=== PATIENT | male | born 1955 | race Caucasian/White ===

== ENCOUNTER 2019-05-24 11:34 | Emergency (ER) | payer MEDICARE ==
[2019-05-24] MEDS ORDERED: DUONEB 0.5-3 MG/3 ml Neb IH ONE ×2 (11:40→11:46)
[2019-05-24] MEDS ORDERED: solu-MEDROL 125 MG IV ONE (11:40)
[2019-05-24 11:53] LABS: Lactic Acid 1.4 (0.4-2.0); VBG BASE EXCESS 3.4 (-2.0-2.0); VBG CARBOXYHEMOGLOBIN 2.8 % T HGB (0.0-6.9); VBG HCO3- 25.9 meq/L (22-28); VBG HEMOGLOBIN 9.5; VBG POTASSIUM 4.8 (3.5-5.1); VBG pH 7.53 (7.32-7.42)
--- NOTE | 2019-05-24 12:08 | XRAY ---
Indication: Chest pain short of breath. Comparison: January 02, 2009. Portable chest demonstrates new right mid to lower lung consolidation with mild lung volume loss, probable combination atelectasis/effusion. Remaining heart and left lung unremarkable. Bony thorax intact.
[2019-05-24] MEDS ORDERED: ROCEPHIN 2 Gm-D5w 50ML BAG** 2 G/50 ML IVPB IV STA (12:21)
[2019-05-24 12:25] LABS: Hematocrit 28.6 % (42-50); Hemoglobin 8.8 gm/dl (12.5-18.0); Mean Corpuscular Hemoglobin 22.4 pg (26-32); Mean Corpuscular Hgb Concent. 30.8 g/dl (32-36); Mean Platelet Volume 9.2 fl (6-9.5); Platelet Count 539 K/mm3 (150-450); Red Blood Count 3.92 M/mm3 (4.1-5.6); Red Cell Distribution Width 17.7 % (11.5-14.0)
--- NOTE | 2019-05-24 12:26 | ERPHSYRPT ---
- History of Present Illness Time Seen by Provider: 05/24/19 11:45 Source: patient Exam Limitations: no limitations Patient Subjective Stated Complaint: pt co sob for 2 months now after he ran out of meds because he does not have a doctor, Triage Nursing Assessment: alert,walked in, resp labored with movement, skin clammy, pink. has chronic dry cough, bs diminished, Physician History: Patient has had over 6 months of shortness of breath since he stopped seeing his medical provider. It has worsened over the past one month. Timing/Duration: week(s) (4), constant, gradual onset, worse (over the past month) Activities at Onset: none Severity of Dyspnea-Max: severe Severity of Dyspnea-Current: severe Possible Cause: frequent episodes, chronic episodes Modifying Factors: Worsens With: activity, coughing, deep breath, exertion Associated Symptoms: constant, wheezing, sweating, tightness, No anxiety, No chest pain/discomfort, No edema, No fever, No insomnia, No loss of appetite, No lightheadedness, No weakness, No ankle swelling, No hemoptysis, No calf pain, No dizziness, No heaviness, No heart racing, No lightheadedness, No leg swelling , No muscle spasms feet, No muscle spasms hands, No painful breathing, No productive cough, No tingling face, No tingling hands Allergies/Adverse Reactions: codeine Allergy (Verified 05/24/19 11:44) ibuprofen Allergy (Verified 05/24/19 11:44) Home Medications: Albuterol Sulfate [Proair Hfa] 4 puff IH BID 08/19/14 [History] Atorvastatin Calcium [Lipitor 40Mg] 40 mg PO HS 08/19/14 [History] Benztropine Mesylate 0.5 mg PO TID 08/19/14 [History] Carbamazepine 200 mg [Tegretol 200 MG] 400 mg PO TID 08/19/14 [History] Clonazepam 2 mg PO DAILY PRN PRN 08/19/14 [History] Fluticasone/Salmeterol [Advair 500-50 Diskus] 1 puff IH BID 08/19/14 [History] Insulin Glargine,Hum.rec.anlog [Lantus] 20 unit SQ DAILY 08/19/14 [History] Lisinopril 20 mg PO DAILY 08/19/14 [History] Metformin HCl 850 mg [Glucophage 850 MG] 1,700 mg PO DAILY 08/19/14 [ History] Metformin HCl 850 mg [Glucophage 850 MG] 850 mg PO HS 08/19/14 [History] Mirtazapine 45 mg PO HS 08/19/14 [History] [place]-3 Ethyl Esters 4 gm PO DAILY 08/19/14 [History] Quetiapine Fumarate 100 mg PO DAILY 08/19/14 [History] Quetiapine Fumarate [Seroquel] 200 mg PO BID 08/19/14 [History] Sertraline HCl 100 mg [Zoloft 100 MG] 150 mg PO DAILY 08/19/14 [History] hydrOXYzine HCl [Hydroxyzine HCl] 50 mg PO TID 08/19/14 [History] Hx Tetanus, Diphtheria Vaccination/Date Given: No Hx Influenza Vaccination/Date Given: No Hx Pneumococcal Vaccination/Date Given: No Immunizations Up to Date: Yes - Review of Systems Constitutional: Fatigue, No Fever, No Chills Eyes: No Discharge, No Eye Pain Ears, Nose, & Throat: No Nose Congestion, No Mouth Swelling, No Throat Pain, No Painful Swallowing Respiratory: Dyspnea, Dyspnea on Exertion (MCINTOSH), Wheezing, No Cough Cardiac: No Chest Pain, No Edema, No Syncope Abdominal/Gastrointestinal: No Abdominal Pain, No Nausea, No Vomiting, No Diarrhea Genitourinary Symptoms: No Dysuria, No Hematuria, No Flank Pain Musculoskeletal: No Back Pain, No Neck Pain Skin: No Rash Neurological: No Dizziness, No Focal Weakness, No Headache, No Parasthesia, No Sensory Changes Psychological: No Emotional Lability Endocrine: Excessive Sweating All Other Systems: Reviewed and Negative - Past Medical History Pertinent Past Medical History: Yes Cardiac History: High Cholesterol, Hypertension Respiratory History: COPD Endocrine Medical History: Diabetes Type II Musculoskeletal History: Fractures Other Medical History: broken back, broken neck, left arm surgery - Past Surgical History Past Surgical History: Yes Gastrointestinal: Appendectomy Musculoskeletal: Orthopedic Surgery - Social History Smoking Status: Former smoker Exposure to second hand smoke: No Drug Use: none Patient Lives Alone: Yes - Nursing Vital Signs Nursing Vital Signs: Initial Vital Signs Pulse Rate 116 H 05/24/19 11:35 Respiratory Rate 26 H 05/24/19 11:35 O2 Sat by Pulse Oximetry 96 01/02/20 11:35 Pain Scale Pain Intensity 0 - Physical Exam General Appearance: mild distress, alert Eye Exam: PERRL/EOMI Ears, Nose, Throat Exam: hearing grossly normal, normal ENT inspection, normal pharynx, pharyngeal erythema, No sinus pain/drainage, No nasal congestion, No tonsillar exudate Neck Exam: normal inspection, non-tender, supple, full range of motion, No Brudzinski, No meningismus, No lymphadenopathy (R), No lymphadenopathy (L), No subcutaneous emphysema, No tenderness midline Respiratory Exam: respiratory distress, airway intact, diminished breath sounds , prolonged expirations, wheezing, No crackles/rales, No stridor, No pleural rub Cardiovascular/Chest Exam: normal heart sounds, regular rate/rhythm, normal peripheral pulses, No murmur Abdominal/Gastrointestinal Exam: soft, No tenderness, No distention, No mass Extremity Exam: non-tender, normal range of motion, normal inspection, no calf tenderness, no pedal edema Neurologic Exam: alert, oriented x 3, cooperative, narcotics agent II-XII nml as tested, normal mood/affect, sensation nml, No motor deficits Skin Exam: normal color, warm, No dry, No petechiae, No jaundice, No cyanosis SpO2 Interpretation: normal SpO2: 99 O2 Delivery: Room Air - Course Nursing assessment & vital signs reviewed: Yes EKG Interpreted by Me: RATE (108), Sinus Tach, NORMAL AXIS, NORMAL INTERVALS, NORMAL ST-T, Other (no change in comparison to EKG from 08/04/2013) - Radiology Exams Chest X-ray Interpretation: Other (per radiologist interpretation: A new right mid to lower lung consolidation with mild lung volume loss, probable combination atelectasis/effusion. Remaining heart and left lung unremarkable. Bony thorax intact.) - CT Exams Chest CT Interpretation: Other (pper the radiologist's interpretation: Negative pulmonary embolus. Large right subpulmonic effusion with right lower lip compressive atelectasis. Prominent precarinal lymph node. Indeterminate calcified left adrenal gland mass and a left renal cyst.) Ordered Tests: Active Orders 24 hr Category Date Time Status Etl Software Engineer STAT Care 05/24/19 11:41 Active EKG-ER Only STAT Care 05/24/19 11:40 Active IV Insertion STAT Care 05/24/19 11:40 Active Oxygen-ED Only Nasal Cannula 2 lpm Care 05/24/19 11:40 Active Regular Diet Diet 05/24/19 Dinner Active CHEST 1 VIEW (PORTABLE) Stat Exams 05/24/19 11:41 Completed CHEST WITH CONTRAST [CT] Stat Exams 05/24/19 13:47 Completed BLOOD CULTURE Stat Lab 05/24/19 12:10 Received CBC W DIFF Stat Lab 05/24/19 12:00 Completed CMP Stat Lab 05/24/19 12:00 Completed CULTURE,URINE Stat Lab 05/24/19 15:05 Ordered D-DIMER QUANTITATIVE Stat Lab 05/24/19 12:00 Completed Lactic Acid Stat Lab 05/24/19 11:49 Completed MAGNESIUM Stat Lab 05/24/19 12:00 Completed Manual Differential NC Stat Lab 05/24/19 12:00 Completed NT PRO BNP Stat Lab 05/24/19 12:00 Completed PROTIME WITH INR Stat Lab 05/24/19 12:00 Completed PTT Stat Lab 05/24/19 12:00 Completed TROPONIN Q3H Lab 05/24/19 12:00 Completed TROPONIN Q3H Lab 05/24/19 14:55 Completed TROPONIN Q3H Lab 05/24/19 17:45 Ordered TROPONIN Q3H Lab 05/24/19 20:45 Ordered TROPONIN Q3H Lab 05/24/19 23:45 Ordered UA W/RFX UR CULTURE Stat Lab 05/24/19 15:05 Ordered VENOUS BLOOD GAS Stat Lab 05/24/19 11:49 Completed BiPap/CPAP STAT RT 05/24/19 11:40 Active Peak Expiratory Flow Rate ONCE RT 05/24/19 11:55 Active Respiratory Therapy Assessment DAILY RT 05/24/19 11:55 Active Medication Summary Generic Name Dose Route Start Last Admin Trade Name Freq PRN Reason Stop Dose Admin Magnesium Sulfate/Dextrose 100 mls @ 100 mls/hr 05/24/19 14:00 05/24/19 13:54 Magnesium 1 Gm / 100 Ml D5w IV 05/24/19 15:59 100 mls/hr Q1H MARY ANN Administration Discontinued Medications Generic Name Dose Route Start Last Admin Trade Name Freq PRN Reason Stop Dose Admin Albuterol/Ipratropium 3 ml 05/24/19 11:40 05/24/19 11:48 Duoneb 0.5-3 Mg/3 Ml Neb IH 05/24/19 11:41 3 ml STAT ONE Administration Albuterol/Ipratropium Confirm 05/24/19 11:46 Duoneb 0.5-3 Mg/3 Ml Neb Administered 05/24/19 11:47 Dose 3 ml IH .STK-MED ONE Ceftriaxone Sodium/Dextrose 2 g in 50 mls @ 100 mls/hr 05/24/19 12:21 13:37 Rocephin 2 Gm-D5w 50ml Bag IV 05/24/19 12:50 Infused STAT STA Infusion Ceftriaxone Sodium/Dextrose Confirm 05/24/19 12:48 Rocephin 2 Gm-D5w 50ml Bag Administered 05/24/19 12:49 Dose 2 g in 50 mls @ ud IV .STK-MED ONE Methylprednisolone Sodium Succinate 125 mg 05/24/19 11:40 05/24/19 12:50 Solu-Medrol 125 Mg IV 05/24/19 11:41 125 mg STAT ONE Administration Methylprednisolone Sodium Succinate Confirm 05/24/19 12:48 Solu-Medrol 125 Mg Administered 05/24/19 12:49 Dose 125 mg .ROUTE .STK-MED ONE Lab/Rad Data: Laboratory Result Diagrams 05/24/19 12:00 05/24/19 12:00 Laboratory Results 05/24/19 05/24/19 05/24/19 Range/Units 14:55 12:00 12:00 WBC (4.0-10.5) K/mm3 RBC (4.1-5.6) M/mm3 Hgb (12.5-18.0) gm/dl Hct (42-50) % MCV (78-100) fl MCH (26-32) pg MCHC (32-36) g/dl RDW (11.5-14.0) % Plt Count (150-450) K/mm3 MPV (6-9.5) fl Absolute Granulocytes (1.4-6.9) Segmented Neutrophils (36.-66.) % Lymphocytes (Manual) (24-44) % Monocytes (Manual) (0.0-12.0) % Hypochromia Platelet Estimate (NORMAL) RBC Morphology Anisocytosis Microcytosis PT 18.1 H (8.83-12.87) SECONDS INR 1.59 (0.8-3.0) APTT 32.6 (24.1-36.1) SECONDS D-Dimer 1157 H* (215-500) ng/mL pO2/FiO2 Ratio % VBG pH (7.32-7.42) VBG pCO2 at Pat Temp (42-55) mm/Hg VBG pO2 at Pat Temp (25-40) mm/Hg VBG HCO3 (22-28) meq/L VBG O2 Sat ([place]) (95-100) VBG Base Excess (-2.0-2.0) VBG Hemoglobin VBG Carboxyhemoglobin (0.0-6.9) % T HGB POC Potassium (3.5-5.1) Sodium (137-145) mmol/L Potassium (3.5-5.1) mmol/L Chloride (98-107) mmol/L Carbon Dioxide (22-30) mmol/L Anion Gap (5-15) MEQ/L BUN (9-20) mg/dL Creatinine (0.66-1.25) mg/dL Estimated GFR ML/MIN Glucose (74-106) mg/dL Lactic Acid (0.4-2.0) Calcium (8.4-10.2) mg/dL Magnesium (1.6-2.3) mg/dL Total Bilirubin (0.2-1.3) mg/dL AST (17-59) U/L ALT (0-50) U/L Alkaline Phosphatase (38-126) U/L Troponin I < 0.012 < 0.012 (0.000-0.034) ng/mL NT-Pro-B Natriuret Pep (0-900) pg/mL Serum Total Protein (6.3-8.2) g/dL Albumin (3.5-5.0) g/dL 05/24/19 05/24/19 05/24/19 Range/Units 12:00 12:00 11:49 WBC 11.0 H (4.0-10.5) K/mm3 RBC 3.92 L (4.1-5.6) M/mm3 Hgb 8.8 L (12.5-18.0) gm/dl Hct 28.6 L (42-50) % MCV 73.0 L (78-100) fl MCH 22.4 L (26-32) pg MCHC 30.8 L (32-36) g/dl RDW 17.7 H (11.5-14.0) % Plt Count 539 H (150-450) K/mm3 MPV 9.2 (6-9.5) fl Absolute Granulocytes 8.61 H (1.4-6.9) Segmented Neutrophils 78 H (36.-66.) % Lymphocytes (Manual) 19 L (24-44) % Monocytes (Manual) 3 (0.0-12.0) % Hypochromia 1+ Platelet Estimate INCREASED (NORMAL) RBC Morphology ABNORMAL Anisocytosis 1+ Microcytosis 1+ PT (8.83-12.87) SECONDS INR (0.8-3.0) APTT (24.1-36.1) SECONDS D-Dimer (215-500) ng/mL pO2/FiO2 Ratio 21 % VBG pH 7.53 H (7.32-7.42) VBG pCO2 at Pat Temp 31 L (42-55) mm/Hg VBG pO2 at Pat Temp 81 H (25-40) mm/Hg VBG HCO3 25.9 (22-28) meq/L VBG O2 Sat ([place]) 96 (95-100) VBG Base Excess 3.4 H (-2.0-2.0) VBG Hemoglobin 9.5 VBG Carboxyhemoglobin 2.8 (0.0-6.9) % T HGB POC Potassium 4.8 (3.5-5.1) Sodium 135 L (137-145) mmol/L Potassium 4.0 (3.5-5.1) mmol/L Chloride 95 L (98-107) mmol/L Carbon Dioxide 29 (22-30) mmol/L Anion Gap 15.2 H (5-15) MEQ/L BUN 10 (9-20) mg/dL Creatinine 0.50 L (0.66-1.25) mg/dL Estimated GFR > 60.0 ML/MIN Glucose 323 H (74-106) mg/dL Lactic Acid 1.4 (0.4-2.0) Calcium 8.7 (8.4-10.2) mg/dL Magnesium 1.2 L (1.6-2.3) mg/dL Total Bilirubin 0.40 (0.2-1.3) mg/dL AST 108 H (17-59) U/L ALT 43 (0-50) U/L Alkaline Phosphatase 195 H (38-126) U/L Troponin I (0.000-0.034) ng/mL NT-Pro-B Natriuret Pep 360 (0-900) pg/mL Serum Total Protein 7.6 (6.3-8.2) g/dL Albumin 3.1 L (3.5-5.0) g/dL - Progress Progress: re-examined Air Movement: good Progress Note: 05/24/19 13:28 Patient is doing much better with no respiratory difficulty and significantly improved airflow throughout his lung pierre. I will take the patient off a the BiPAP and give a trial Blood Culture(s) Obtained: Yes Antibiotics given: Yes Discussed with : Hubert (@15:59, discuss the case with Dr Anderson, hospitalist at [facility]. Due to patient having a unilateral large pulmonic effusion with no etiology and no pulmonology coverage, patient should be transfered to the facility that has Pulmonology specialty), Other (Discussed the patient and results with Dr Ronquillo, ED attending at [facility] in [place], [place]. Dr Ronquillo accepted the patient for transfer) Will see patient in: ED Counseled pt/family regarding: lab results, diagnosis, need for follow-up, rad results - Departure Departure Disposition: Transfer ([facility] in [place], [place] to Dr Ronquillo) Clinical Impression: Pleural effusion on right, COPD exacerbation, Community acquired bacterial pneumonia, Essential hypertension, Hyperglycemia, Hypomagnesemia Dyspnea Qualifiers: Dyspnea type: acute respiratory distress Qualified Code(s): R06.03 - Acute respiratory distress Anemia Qualifiers: Anemia type: unspecified type Qualified Code(s): D64.9 - Anemia, unspecified Condition: Fair Critical Care Time: Yes Critical Care Time(excluding separately billable procedures): Critical 30-74 mins Referrals: DOCTOR,NO FAMILY [Primary Care Provider] - Instructions: Chronic Obstructive Pulmonary Disease
[2019-05-24 12:45] LABS: ALBUMIN 3.1 g/dL (3.5-5.0); ALKALINE PHOSPHATASE 195 U/L (38-126); ANION GAP 15.2 MEQ/L (5-15); BLOOD UREA NITROGEN 10 mg/dL (9-20); CHLORIDE 95 mmol/L (98-107); Calcium 8.7 mg/dL (8.4-10.2); Carbon Dioxide 29 mmol/L (22-30); Glucose 323 mg/dL (74-106); MAGNESIUM 1.2 mg/dL (1.6-2.3); NT PRO BNP 360 pg/mL (0-900); SGOT/AST 108 U/L (17-59); SGPT/ALT 43 U/L (0-50); SODIUM 135 mmol/L (137-145); Total Protein 7.6 g/dL (6.3-8.2)
[2019-05-24] MEDS ORDERED: solu-MEDROL 125 MG ONE (12:48)
[2019-05-24] MEDS ORDERED: ROCEPHIN 2 Gm-D5w 50ML BAG** 2 G/50 ML IVPB IV ONE (12:48)
[2019-05-24 13:31] LABS: INR 1.59 (0.8-3.0); PROTIME 18.1 SECONDS (8.83-12.87)
[2019-05-24 13:32] LABS: PTT 32.6 SECONDS (24.1-36.1)
[2019-05-24] MEDS ORDERED: Magnesium 1 Gm / 100 Ml D5W*** 200 ML IV ONE (13:52)
[2019-05-24] MEDS: Magnesium 1 Gm / 100 Ml D5W*** 100 ML IV SCH ×2 (13:53→13:54)
[2019-05-24 14:32] LABS: ANISOCYTOSIS 1+; Absolute Neutrophil Ct (ANC) 8.61 (1.4-6.9); Lymphocytes 19 % (24-44); Microcytosis 1+; Monocyte 3 % (0.0-12.0); Neutrophils 78 % (36.-66.); Platelet Estimate INCREASED (NORMAL); Total Cells Counted 100
[2019-05-24 14:33] LABS: Hypochromia 1+
--- NOTE | 2019-05-24 14:58 | XRAY ---
Indication: Dyspnea/short of breath. Pneumonia. Elevated d-dimer. Multiple contiguous axial images obtained through the chest using 80 cc Isovue 370 contrast and PE protocol. Comparison: None There is adequate opacification of the pulmonary arteries. No pulmonary embolus. Heart is not enlarged. Aorta is minimally arteriosclerotic without aneurysm/dissection. Small mediastinal lymph nodes, largest right precarinal measuring 1.5 x 2.3 cm. No pathologic hilar lymphadenopathy. There is large right subpulmonic effusion with subsequent right lower lobe compressive atelectasis and mild right lung volume loss. Remaining left lung is clear. Bony thorax intact with mild degenerative changes throughout the spine and tiny T4 bone islands. Limited upper abdomen demonstrates 2.3 cm left adrenal gland mass with peripheral microcalcification and a 1.4 cm left mid renal cortical cyst. Impression: 1. Negative pulmonary embolus. 2. Large right subpulmonic effusion with right lower lobe compressive atelectasis. 3. Prominent precarinal lymph node. 4. Indeterminant calcified left adrenal gland mass and a left renal cyst.
[2019-05-24 15:06] VITALS: PULSE 87
[2019-05-24 15:53] VITALS: BP 146/80
[2019-05-24 16:03] VITALS: O2SAT 99
[2019-05-24 17:07] LABS: Appearance CLEAR (CLEAR); Bilirubin NEGATIVE (NEGATIVE); Blood NEGATIVE Ery/ul (0-5); Glucose >=500 mg/dL (NEGATIVE); Ketones SMALL (NEGATIVE); Leukocyte Esterase NEGATIVE (NEGATIVE); Mucus SLIGHT /HPF (NEGATIVE); Nitrite NEGATIVE (NEGATIVE); Protein,Urine Dip 30 (Negative); Specific Gravity 1.029 (1.005-1.025); Urobilinogen NEGATIVE mg/dL (0-1)
== END 2019-05-24 17:10 | disposition short-term general hospital (02) ==
LOC: ED 11:34
DX: J90 Pleural effusion, not elsewhere classified (principal); J44.1 Chronic obstructive pulmonary disease with (acute) exacerbation; J15.9 Unspecified bacterial pneumonia; I10 Essential (primary) hypertension; E11.65 Type 2 diabetes mellitus with hyperglycemia; E83.42 Hypomagnesemia; R06.03 Acute respiratory distress; D64.9 Anemia, unspecified
CPT/HCPCS: 36000; 36415; 71045; 71260; 80053; 81001; 82805; 83605; 83735; 83880; 84484; 85025; 85379; 85610; 85730; 87040; 87086; 93005; 93041; 94002; 94150; 94640; 96365; 96367; 96374; 99285; 99291; J0696; J2930; J3475; A9270-GY